=== PATIENT | male | born 1980 | race Caucasian/White ===

== ENCOUNTER 2019-03-16 16:17 | Emergency (ER) | payer MEDICARE, MEDICAID ==
[~2019-03-16] VITALS: Ht 175.3 cm; Wt 66.2 kg
[~2019-03-16 16:17] MED LIST: ALPR2TAB2 PO; HYDR-3203 PO; IBUP-1955 PO
--- NOTE | 2019-03-16 16:32 | NUR ---
PATIENT BIB [facility] WITH REPORT OF CHRONIC ABDOMINAL PAIN. PATIENT REPORTS CHRONIC ABDOMINAL PAIN AND PANCREATITIS. VERBALIZING HE IS PISSED OFF ABOUT GETTING SICK. PATIENT ASSISTED TO BED. CONNECTED TO MONITOR.
[2019-03-16 17:23] LABS: BASOPHILS % (AUTO) 0.6 % (0.0-2.0); EOSINOPHILS % (AUTO) 7.7 % (0.0-6.0); HEMATOCRIT 39 % (39-51); HEMOGLOBIN 13.3 g/dL (13.5-17.5); LYMPHOCYTES # (AUTO) 1.9 /CMM (0.8-4.8); LYMPHOCYTES % (AUTO) 37.7 % (20.0-44.0); MEAN CORPUSCULAR HGB CONC 34 g/dl (31.0-36.0); MEAN CORPUSCULAR VOLUME 97 fL (80-96); MONOCYTES # (AUTO) 0.5 /CMM (0.1-1.30); NEUTROPHILS # (AUTO) 2.2 /CMM (1.8-8.9); PLATELET COUNT (AUTO) 218 /CMM (150-450); RED BLOOD CELL COUNT(AUTO) 3.98 MIL/uL (4.5-6.0); WHITE BLOOD COUNT (AUTO) 5.1 K/uL (4.3-11.0)
[2019-03-16] MEDS ORDERED: IV NS 0.9% 1,000 ML BAG IV ONE (17:30)
[2019-03-16] MEDS ORDERED: MORPHINE SULFATE INJ 2 MG/ML DISP.SYRIN IV ONE (17:30)
[2019-03-16] MEDS ORDERED: ONDANSETRON HCL/PF 4 MG/2 ML VIAL IVP ONE (17:30)
[2019-03-16] MEDS ORDERED: ONDANSETRON HCL/PF 4 MG/2 ML VIAL ONE (17:41)
[2019-03-16] MEDS ORDERED: MORPHINE SULFATE INJ 4 MG/ML DISP.SYRIN ONE (17:42)
[2019-03-16 17:49] LABS: CREATININE 0.9 mg/dL (0.6-1.3)
[2019-03-16 17:54] LABS: ALBUMIN 4.3 g/dL (3.4-5.0); BILIRUBIN,DIRECT 0.1 mg/dL (0.0-0.2); BILIRUBIN,TOTAL 0.3 mg/dL (0.2-1.0); TOTAL PROTEIN, SERUM 6.9 g/dL (6.4-8.2)
[2019-03-16] MEDS ORDERED: HYDROMORPHONE INJ 0.5 MG/0.5 ML SYRINGE IV ONE ×2 (18:30→19:30)
[2019-03-16] MEDS ORDERED: HYDROMORPHONE 1 MG/1 ML DISP.SYRIN ONE ×2 (18:36→19:31)
--- NOTE | 2019-03-16 18:54 | NUR ---
PATIENT RESTING INSIDE ROOM. AWAKE, A/O X 4, NO ACUTE DISTRESS. VERBALIZES THAT HE STILL FEELS DISCOMFORT ON ABDOMEN BUT SAID THAT [employer]IL[employer] IS STARTING TO WORK. WILL CONTINUE TO MONITOR
--- NOTE | 2019-03-16 19:43 | NUR ---
Patient discharged to home in stable condition. Written and verbal after care instructions given. Patient verbalizes understanding of instruction.IV removed. Catheter intact and site benign. Pressure and 4x4 applied to site. No bleeding noted. Pt ambulatory with a steady gait using a cane
[2019-03-16 19:44] VITALS: BP 115/76
== END 2019-03-16 19:44 | disposition home or self-care (01) ==
LOC: ER 16:28
DX: K86.1 Other chronic pancreatitis (principal); G89.29 Other chronic pain; M54.5 Low back pain; F41.9 Anxiety disorder, unspecified; F31.9 Bipolar disorder, unspecified; F12.10 Cannabis abuse, uncomplicated; R19.7 Diarrhea, unspecified; G43.909 Migraine, unspecified, not intractable, without status migrainosus; F11.10 Opioid abuse, uncomplicated; Z91.010 Allergy to peanuts
CPT/HCPCS: 36415; 80048; 80076; 83690; 85025; 96374; 96375; 96376; 99283; J1170 ×2; J2270; J2405; J7030